=== PATIENT | female | born 2000 | race Caucasian/White ===

== ENCOUNTER 2019-10-22 15:12 | Emergency (ER) | payer OTHER ==
[~2019-10-22] VITALS: Ht 170.2 cm; Wt 54.4 kg
[2019-10-22 15:31] VITALS: BP 131/92
[2019-10-22] MEDS ORDERED: PRED20TA PO (15:45)
[2019-10-22] MEDS ORDERED: ORPHENADRINE CITRATE 60 MG/2 ML VIAL. IM ONE (15:45)
[2019-10-22] MEDS ORDERED: ORPH-16 PO (15:45)
[2019-10-22] MEDS ORDERED: DEXAMETHASONE 4 MG TABLET PO ONE (15:45)
--- NOTE | 2019-10-22 15:45 | PHYS DOC ---
Past History Past Medical History: Anxiety, Depression, Other Additional Past Medical Histor: Chronic lower back pain Past Surgical History: No Surgical History, Other Smoking: Non-smoker Alcohol Use: None Drug Use: None Adult General Chief Complaint Chief Complaint: BACK PAIN OR INJURY HPI HPI 19-year-old female presents with report of low back pain with radiation down into both buttocks after lifting her riding lawnmower prior to arrival. Reports at that time she felt a pop with subsequent pain. Patient reports history of chronic low back pain for which she has gotten steroid injections in the past. Patient reports she does follow with pain management with Dr. Tomlin at [facility]. Patient denies loss of bowel or bladder. Denies . Reports she receives depot shots. Review of Systems Review of Systems Constitutional: Denies fever or chills Eyes: Denies redness or eye pain HENT: Denies nasal congestion or sore throat Respiratory: Denies cough or shortness of breath Cardiovascular: Denies chest pain or palpitations GI: Denies abdominal pain, nausea, or vomiting : Denies dysuria or hematuria Musculoskeletal: Reports back pain with radiation to buttocks Integument: Denies rash or skin lesions Neurologic: Denies loss of bowel or bladder Complete systems were reviewed and found to be within normal limits, except as documented in this note. Current Medications Current Medications Current Medications Medications (Trade) Dose Ordered Sig/Blanca Start Time Stop Time Status Last Admin Dose Admin Dexamethasone (Decadron) 10 mg 1X ONCE 10/22/19 15:45 10/22/19 15:46 Orphenadrine Citrate (Norflex) 60 mg 1X ONCE 10/22/19 15:45 10/22/19 15:46 Allergies Allergies Allergies Coded Allergies Type Severity Reaction Last Updated Verified No Known Drug Allergies 10/22/19 No Physical Exam Physical Exam Constitutional: Well developed, well nourished, no acute distress, non-toxic appearance HENT: Normocephalic, atraumatic, oropharynx moist Eyes: Conjunctiva normal, no discharge Neck: Normal range of motion, no tenderness, supple Respiratory: No respiratory distress, equal rise and fall of chest Skin: Warm, dry, no erythema, no rash Back: No midline tenderness, bilateral lumbar paraspinal tenderness, no CVA tenderness Extremities: No tenderness, ROM intact, no edema Neurologic: Alert and oriented X 3, no focal deficits noted Psychologic: Affect normal, judgment normal Current Patient Data Vital Signs Vital Signs Date Time Temp Pulse Resp B/P (MAP) Pulse Ox O2 Delivery O2 Flow Rate FiO2 10/22/19 15:31 98.2 98 16 131/92 (105) 100 Room Air EKG EKG [] Radiology/Procedures Radiology/Procedures [] Course & Med Decision Making Course & Med Decision Making Patient presents with history of present illness and physical exam consistent for acute on chronic low back pain with sciatica component. No midline bony tenderness appreciated. Denies loss of bowel or bladder. Pain addressed. Patient stable for discharge with outpatient follow-up with PCP. Discussed findings and plan with patient, who acknowledges understanding and agreement. Dragon Disclaimer Dragon Disclaimer This electronic medical record was generated, in whole or in part, using a voice recognition dictation system. Departure Departure: Impression: Primary Impression: Acute exacerbation of chronic low back pain Additional Impression: Sciatica Disposition: HOME, SELF-CARE Condition: STABLE Referrals: FAUZIA LUND DO (PCP) Patient Instructions: Back Pain, Adult, [id number], Sciatica, [id number] Additional Instructions: ICE area 20 min on then leave off for next 20 min. Repeat as needed for next few days. Call and make an appointment with Dr. Tomlin (Pain management) in next 2-5 days. May take over the counter Tylenol and/or Ibuprofen as needed for pain in addition to prescribed medications. Scripts Orphenadrine Citrate (ORPHENADRINE CITRATE) 100 Mg Tablet.er 1 TAB PO BID PRN for MUSCLE PAIN, #14 TAB 0 Refills Prov: TAMARA CEBALLOS DO 10/22/19 Prednisone (PREDNISONE) 20 Mg Tablet 2 TAB PO DAILY for Back pain, #8 TAB Start this prescription tomorrow, Wednesday10/23/2019 Prov: TAMARA CEBALLOS DO 10/22/19 Problem Qualifiers Additional Impression: Sciatica Laterality: bilateral Qualified Codes: M54.31 - Sciatica, right side; M54.32 - Sciatica, left side TAMARA CEBALLOS DO Oct 22, 2019 15:45
== END 2019-10-22 15:46 | disposition home or self-care (01) ==
LOC: ER 15:12
DX: M54.42 Lumbago with sciatica, left side (principal); M54.41 Lumbago with sciatica, right side; G89.29 Other chronic pain
CPT/HCPCS: 96372; 99283; J2360; J8540